=== PATIENT | female | born 1985 | race Two or more races ===

== ENCOUNTER 2018-07-12 22:42 | Emergency (ER) | payer MEDICAID ==
[~2018-07-12] VITALS: Ht 154.9 cm; Wt 58.5 kg
--- NOTE | 2018-07-12 23:10 | NUR ---
ED Nurse Note: pt came to ED c/o of tooth pain 9/10 upper left teeth x 1 day. per pt she too 600mg motrin for pain. pt denies trauma, per pt " i think it is my wisdom tooth growing"
--- NOTE | 2018-07-12 23:11 | NUR ---
Note kathleen in EDM - 07/12/18 at 2312 by PDELEON ED Nurse Note: pt came to ED c/o of tooth pain 02/23 upper left teeth x 1 day. per pt she too 600mg motrin for pain. pt denies trauma, per pt "
[2018-07-12 23:13] VITALS: BP 120/81
[2018-07-12] MEDS ORDERED: Ketorolac 60mg Inj IM ONE (23:30)
[2018-07-12] MEDS ORDERED: IBUPROFEN600 MG ORAL (23:35)
[2018-07-12] MEDS ORDERED: ACETAMINOPHEN-1 EAC1 ORAL (23:35)
[2018-07-12 23:45] VITALS: BP 120/81
[2018-07-12] MEDS ORDERED: Tylenol #3 tab (300mg/30mg) ORAL ONE (23:45)
--- NOTE | 2018-07-12 23:45 | NUR ---
ED Nurse Note: pt d/c per ermd, pt given discharge and medication instructions. pt is aox4 and verbalized understanding. ID band removed. pt left ED with all belongings. pt is able to walk with steady gait.
--- NOTE | 2018-07-13 06:01 | Emergency Room Report ---
History of Present Illness General Chief Complaint: Pain Source: Patient Present Illness HPI Patient presents with complaints of dental pain back molar region ongoing for the past 3 days Denies any fevers or chills denies any difficulty speaking Denies any posterior neck pain or photophobia Patient has bilateral hyper she feels it more on the left side upper back molar region denies any trauma Denies any fevers or chills Allergies: Coded Allergies: No Known Allergies (Unverified , 07/12/18) Patient History Past Medical History: see triage record Pertinent Family History: none Last Menstrual Period: JUN 07 Now: No : 3 Para: 3 Reviewed Nursing Documentation: PMH: Agreed; PSxH: Agreed Nursing Documentation-PMH Past Medical History: No Stated History Review of Systems All Other Systems: negative except mentioned in HPI Physical Exam Vital Signs Date Time Temp Pulse Resp B/P (MAP) Pulse Ox O2 Delivery O2 Flow Rate FiO2 07/12/18 23:05 98.1 78 13 120/81 99 Room Air Sp02 EP Interpretation: reviewed, normal General Appearance: mild distress - In pain Head: normocephalic, atraumatic Eyes: bilateral eye PERRL, bilateral eye EOMI ENT: other - Patient appears to have active growth of wisdom tooth on the left side, coming through the gingival region no obvious erythema no abscess supple Neck: full range of motion, supple Respiratory: lungs clear Cardiovascular #1: regular rate, rhythm Gastrointestinal: non tender, soft Musculoskeletal: normal inspection Neurologic: alert, oriented x3, responsive Skin: normal color, no rash Medical Decision Making Diagnostic Impression: Primary Impression: dental pain ER Course Patient has signs of likely wisdom teeth growth versus dental caries There is no sign of any obvious Abscess or infectious pathology patient provided with pain medication and requires close dental follow-up Last Vital Signs Date Time Temp Pulse Resp B/P (MAP) Pulse Ox O2 Delivery O2 Flow Rate FiO2 07/12/18 23:45 98.1 78 13 120/81 99 Room Air Status: improved Disposition: HOME, SELF-CARE Condition: Improved Scripts Acetaminophen With Codeine (T#3) (TYLENOL #3 TAB*) Y Tab 1 TAB ORAL Q8H PRN for For Pain, #7 TAB Prov: Ursula Hay DO 07/12/18 Ibuprofen* (MOTRIN*) 600 Mg Tablet 600 MG ORAL Q8H PRN for For Pain, #20 TAB 0 Refills Prov: Ursula Hay DO 07/12/18 Referrals: NOT CHOSEN [facility]/MD,REFERRING (PCP) Patient Instructions: Dental Pain, [id number] Additional Instructions: Patient is provided with the discharge instructions notified to follow up with primary doctor in the next 2-3 days otherwise return to the er with any worsening symptoms. Please note that this report is being documented using DRAGON technology. This can lead to erroneous entry secondary to incorrect interpretation by the dictating instrument. Ursula Hay DO Jul 13, 2018 06:01
== END 2018-07-12 23:45 | disposition home or self-care (01) ==
LOC: EMR 23:25
DX: K08.89 Other specified disorders of teeth and supporting structures (principal)
CPT/HCPCS: 99282

== ENCOUNTER 2018-08-20 20:55 | Emergency (ER) | payer MEDICAID ==
[~2018-08-20] VITALS: Ht 154.9 cm; Wt 59.0 kg
[~2018-08-20 20:55] MED LIST: ACETAMINOPHEN-1 EAC1 ORAL; IBUPROFEN600 MG ORAL
[2018-08-20] MEDS ORDERED: NKM (21:37)
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
[2018-08-20] MEDS ORDERED: IBUPROFEN600 MG ORAL (22:53)
[2018-08-20] MEDS ORDERED: MUPIROCIN22 GM TOPIC (22:53)
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
[2018-08-20 22:58] VITALS: BP 114/65
--- NOTE | 2018-08-20 22:58 | NUR ---
ER DISCHARGE NOTE: Patient is cleared to be discharged per ERMD, pt is aox4, on room air, with stable vital signs. pt was given dc and prescription instructions, pt was able to verbalize understanding, pt id band removed without complications. pt is able to ambulate with steady gait. pt took all belongings.
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
== END 2018-08-20 23:00 | disposition home or self-care (01) ==
LOC: EMR 22:00
DX: S09.90XA Unspecified injury of head, initial encounter (principal); S40.011A Contusion of right shoulder, initial encounter; S40.211A Abrasion of right shoulder, initial encounter; Y04.2XXA Assault by strike against or bumped into by another person, initial encounter; Y92.89 Other specified places as the place of occurrence of the external cause
CPT/HCPCS: 70450; 99284